=== PATIENT | female | born 1965 | race Caucasian/White ===

== ENCOUNTER 2018-03-12 20:32 | Emergency (ER) | payer OTHER ==
[2018-03-12 23:05] LABS: Urine Blood NEGATIVE (NEG); Urine Glucose NEGATIVE (NEG); Urine Protein NEGATIVE (NEG); Urine Specific Gravity 1.015 (1.005-1.030)
[2018-03-12] MEDS ORDERED: HYDROCODONE/APAP 5/325 MG TAB ONE (23:10)
[2018-03-12] MEDS ORDERED: IBUPROFEN 200 MG TAB PO ONE (23:11)
--- NOTE | 2018-03-12 23:59 | EDPHYS ---
Physician Documentation [facility] Name: Lauren Carias Age: 53 yrs Sex: Female : 1965 Arrival Date: 03/12/2018 Time: 20:34 Bed 25 Private MD: ED Physician Ashish Saldaña HPI: 03/13 00:00 This 53 yrs old Female presents to ER via Ambulatory with complaints of Left pm1 rib pain. 00:00 Details of fall: The patient fell from seated position, out of a chair. Onset: The pm1 symptoms/episode began/occurred today. Associated injuries: The patient sustained left lateral lower rib, pain. The patient has not experienced similar symptoms in the past. Patient was sitting in the chair of her boat and it folded. She fell on her left rib cage on the throttle of the boat. No headache, head injury, or neck pain. no shortness of breath or fever. 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 - Social history:: Smoking status: Patient/guardian denies using tobacco. - Ebola Screening: : Patient denies travel to an Ebola-affected area in the 21 days before illness onset. ROS: 03/13 00:00 Constitutional: Negative for fever, chills, and weight loss, Eyes: Negative for injury, pm1 pain, redness, and discharge, ENT: Negative for injury, pain, and discharge, Neck: Negative for injury, pain, and swelling, Cardiovascular: Negative for chest pain, palpitations, and edema, Respiratory: Negative for shortness of breath, cough, wheezing, and pleuritic chest pain, Abdomen/GI: Negative for abdominal pain, nausea, vomiting, diarrhea, and constipation, Back: Negative for injury and pain, : Negative for injury, bleeding, discharge, and swelling, MS/Extremity: Negative for injury and deformity, Skin: Negative for injury, rash, and discoloration, Neuro: Negative for headache, weakness, numbness, tingling, and seizure. Exam: 00:00 Constitutional: This is a well developed, well nourished patient who is awake, alert, pm1 and in no acute distress. Head/Face: Normocephalic, atraumatic. Eyes: Pupils equal round and reactive to light, extra-ocular motions intact. Lids and lashes normal. Conjunctiva and sclera are non-icteric and not injected. Cornea within normal limits. Periorbital areas with no swelling, redness, or edema. ENT: Nares patent. No nasal discharge, no septal abnormalities noted. Tympanic membranes are normal and external auditory canals are clear. Oropharynx with no redness, swelling, or masses, exudates, or evidence of obstruction, uvula midline. Mucous membranes moist. Neck: Trachea midline, no thyromegaly or masses palpated, and no cervical lymphadenopathy. Supple, full range of motion without nuchal rigidity, or vertebral point tenderness. No Meningismus. 00:00 Cardiovascular: Regular rate and rhythm with a normal S1 and S2. No gallops, murmurs, or rubs. Normal PMI, no JVD. No pulse deficits. Respiratory: Lungs have equal breath sounds bilaterally, clear to auscultation and percussion. No rales, rhonchi or wheezes noted. No increased work of breathing, no retractions or nasal flaring. Abdomen/GI: Soft, non-tender, with normal bowel sounds. No distension or tympany. No guarding or rebound. No evidence of tenderness throughout. Back: No spinal tenderness. No costovertebral tenderness. Full range of motion. Skin: Warm, dry with normal turgor. Normal color with no rashes, no lesions, and no evidence of cellulitis. MS/ Extremity: Pulses equal, no cyanosis. Neurovascular intact. Full, normal range of motion. 00:00 Chest/axilla: Inspection: normal, Palpation: crepitus, is not appreciated, tenderness, of the left lateral chest mid axillary, that totally reproduces the patient's complaints. 00:00 Neuro: Orientation: is normal, Motor: is normal, moves all fours, Gait: is steady, at a normal pace, without difficulty. Vital Signs: 03/12 20:51 BP 118 / 82; Pulse 69; Resp 18; Temp 98.0(O); Pulse Ox 98% ; Weight 61.69 kg; Height 5 aj1 ft. 2 in. (157.48 cm); Pain 8/10; 21:36 BP 129 / 75; Pulse 63; Resp 20; Pulse Ox 99% on R/A; mb3 23:03 BP 128 / 80; Pulse 67; Resp 18; Pulse Ox 99% on R/A; mb3 03/13 00:10 BP 132 / 92; Pulse 65; Resp 18; Pulse Ox 99% on R/A; mb3 03/12 20:51 Body Mass Index 24.87 (61.69 kg, 157.48 cm) aj1 Jackelyn Coma Score: 03/12 20:51 Eye Response: spontaneous(4). Verbal Response: oriented(5). Motor Response: obeys aj1 commands(6). Total: 15. Trauma Score (Adult): 20:51 Eye Response: spontaneous(1); Verbal Response: oriented(1); Motor Response: obeys aj1 commands(2); Systolic BP: > 89 mm Hg(4); Respiratory Rate: 10 to 29 per min(4); Delano Score: 15; Trauma Score: 12 MDM: 21:02 Patient medically screened. pm1 21:08 ED course: Patient offered pain medications for left rib pain. Patient refused. pm1 23:57 Data reviewed: vital signs. Data interpreted: Pulse oximetry: on room air is 99 %. pm1 Interpretation: normal. Counseling: I had a detailed discussion with the patient and/or guardian regarding: the historical points, exam findings, and any diagnostic results supporting the discharge/admit diagnosis, radiology results, the need for outpatient follow up, to return to the emergency department if symptoms worsen or persist or if there are any questions or concerns that arise at home. 03/12 22:59 Order name: Urine Dipstick--Ancillary (enter results); Complete Time: 23:59 eb 03/12 21:11 Order name: Ribs Unil W/CXR; Complete Time: 15:03 EDMS 03/12 21:08 Order name: Urine Dipstick-Ancillary (obtain specimen); Complete Time: 00:08 pm1 03/12 21:08 Order name: Urine Test (obtain specimen); Complete Time: 00:08 pm1 Administered Medications: 23:12 Drug: Ibuprofen 600 mg Route: PO; 3 03/13 00:08 Follow up: Response: No adverse reaction 3 03/12 23:13 Drug: HYDROcodone-acetaminophen 5 mg-325 mg 1 tabs Route: PO; 3 03/13 00:08 Follow up: Response: No adverse reaction 3 00:07 Drug: [place] 5 mg-325 mg 1 tabs Route: PO; 3 00:08 Follow up: Response: No adverse reaction; Medication administered at discharge. 3 Disposition: 00:10 Co-signature as Attending Physician, Ashish Saldaña MD. pk Disposition: 03/12/18 23:58 Discharged to Home. Impression: Fracture of one rib, left side. - Condition is Stable. - Discharge Instructions: Rib Fracture. - Prescriptions for Tylenol- Codeine #3 300-30 mg Oral Tablet - take 2 tablets by ORAL route every 6 hours As needed; 20 tablet. - Medication Reconciliation Form, Thank You Letter, Prescription Opioid Use form. - Follow up: Emergency Department; When: As needed; Reason: Worsening of condition. Follow up: Private Physician; When: 2 - 3 days; Reason: Recheck today's complaints, Continuance of care, Re-evaluation by your physician. - Problem is new. - Symptoms have improved. Signatures: Dispatcher [employer] EDMS Triny Chopra RN RN aj1 Ashish Saldaña MD MD pkl Livan Rea, CHUCK [employer] SALES REPRESENTATIVE pm1 Ahmet Armstrong RN RN mb3 Corrections: (The following items were deleted from the chart) 03/12 21:11 21:08 Ribs Left+RAD.RAD.BRZ ordered. [facility] 21:12 21:08 Chest Single [facility]. [facility] 03/13 00:10 03/12 23:58 03/12/2018 23:58 Discharged to Home. Impression: Fracture of one rib, left mb3 side. Condition is Stable. Forms are Medication Reconciliation Form, Thank You Letter, Antibiotic Education, Prescription Opioid Use. Follow up: Emergency Department; When: As needed; Reason: Worsening of condition. Follow up: Private Physician; When: 2 - 3 days; Reason: Recheck today's complaints, Continuance of care, Re-evaluation by your physician. Problem is new. Symptoms have improved. pm1
--- NOTE | 2018-03-12 23:59 | ER ---
Nurse's Notes [facility] Name: Lauren Carias Age: 53 yrs Sex: Female : 1965 Arrival Date: 03/12/2018 Time: 20:34 Bed 25 Private MD: Diagnosis: Fracture of one rib, left side Presentation: 03/12 20:51 Presenting complaint: Patient states: "I fell really really hard on a boat throttle. I aj1 was sitting on the boat seat and the seat flipped up and I fell into the throttle" Reports pain to left posterior anterior chest. Reports pain is aggravated by movement and deep breathing. Care prior to arrival: None. Mechanism of Injury: Fall out of chair. Trauma event details: Injury occurred in the [facility]. 20:51 Acuity: SOFIA 4 aj1 20:51 Method Of Arrival: Ambulatory aj1 20:58 Transition of care: patient was not received from another setting of care. Onset of aj1 symptoms was March 12, 2018 at 19:15. Risk Assessment: Do you want to hurt yourself or someone else? Patient reports no desire to harm self or others. Initial Sepsis Screen: Does the patient meet any 2 criteria? No. Patient's initial sepsis screen is negative. Does the patient have a suspected source of infection? No. Patient's initial sepsis screen is negative. DRIER: 21:00 LMP N/A - Post-menopause aj1 Trauma Activation: Not Applicable Physician: ED Physician; Name: ; Notified At: ; Arrived At: Physician: General Surgeon; Name: ; Notified At: ; Arrived At: Physician: Radiology; Name: ; Notified At: ; Arrived At: Physician: Respiratory; Name: ; Notified At: ; Arrived At: Physician: Lab; Name: ; Notified At: ; Arrived At: Historical: - Allergies: 21:00 No Known Allergies; aj1 - Home Meds: 21:00 Bupropion Oral [Active]; progesterone [Active]; aj1 - PMHx: 21:00 None; aj1 - PSHx: 21:00 foot surgery; aj1 - Immunization history: Last tetanus immunization: < 5 years ago. - Social history:: Smoking status: Patient/guardian denies using tobacco. - Ebola Screening: : Patient denies travel to an Ebola-affected area in the 21 days before illness onset. Screenin:51 Abuse screen: Denies threats or abuse. Denies injuries from another. Tuberculosis aj1 screening: No symptoms or risk factors identified. 07 00:10 Nutritional screening: No deficits noted. Fall Risk None identified. mb3 Assessment: 03/12 20:51 General: Appears in no apparent distress. uncomfortable, Behavior is calm, cooperative, aj1 appropriate for age. Pain: Complains of pain in left lateral posterior chest Pain does not radiate. Pain currently is 8 out of 10 on a pain scale. at worst was 10 out of 10 on a pain scale. Quality of pain is described as aching, Pain began 2 hours ago. Neuro: Level of Consciousness is awake, alert, obeys commands. Cardiovascular: Patient's skin is warm and dry. Respiratory: Reports shortness of breath Airway is patent Respiratory effort is even, unlabored, Respiratory pattern is regular, symmetrical. GI: No signs and/or symptoms were reported involving the gastrointestinal system. Derm: Skin is pink, warm \\T\\ dry. Musculoskeletal: Range of motion: intact in all extremities. 23:03 Reassessment: Patient and/or family updated on plan of care and expected duration. Pain mb3 level reassessed. Patient is alert, oriented x 3, equal unlabored respirations, skin warm/dry/pink. Vital Signs: 20:51 BP 118 / 82; Pulse 69; Resp 18; Temp 98.0(O); Pulse Ox 98% ; Weight 61.69 kg; Height 5 aj1 ft. 2 in. (157.48 cm); Pain 8/10; 21:36 BP 129 / 75; Pulse 63; Resp 20; Pulse Ox 99% on R/A; mb3 23:03 BP 128 / 80; Pulse 67; Resp 18; Pulse Ox 99% on R/A; mb3 03/13 00:10 BP 132 / 92; Pulse 65; Resp 18; Pulse Ox 99% on R/A; mb3 03/12 20:51 Body Mass Index 24.87 (61.69 kg, 157.48 cm) aj1 Jefferson Coma Score: 03/12 20:51 Eye Response: spontaneous(4). Verbal Response: oriented(5). Motor Response: obeys aj1 commands(6). Total: 15. Trauma Score (Adult): 20:51 Eye Response: spontaneous(1); Verbal Response: oriented(1); Motor Response: obeys aj1 commands(2); Systolic BP: > 89 mm Hg(4); Respiratory Rate: 10 to 29 per min(4); Jefferson Score: 15; Trauma Score: 12 ED Course: 20:34 Patient arrived in ED. ds1 20:51 Patient has correct armband on for positive identification. aj1 20:51 Patient maintains SpO2 saturation greater than 95% on room air. aj1 20:54 Triage completed. aj1 21:00 Ahmet Armstrong, FRANKLIN is Primary Nurse. mb3 21:00 Arm band placed on Patient placed in an exam room. aj1 21:02 Livan Rea NP is PHCP. pm1 21:02 Ashish Saldaña MD is Attending Physician. pm1 21:22 Ribs Unil W/CXR In Process Unspecified. EDMS 03/13 00:10 No provider procedures requiring assistance completed. Patient did not have IV access mb3 during this emergency room visit. Administered Medications: 03/12 23:12 Drug: Ibuprofen 600 mg Route: PO; mb3 03/13 00:08 Follow up: Response: No adverse reaction mb3 03/12 23:13 Drug: HYDROcodone-acetaminophen 5 mg-325 mg 1 tabs Route: PO; mb3 03/13 00:08 Follow up: Response: No adverse reaction mb3 00:07 Drug: [place] 5 mg-325 mg 1 tabs Route: PO; mb3 00:08 Follow up: Response: No adverse reaction; Medication administered at discharge. mb3 Outcome: 03/12 23:58 Discharge ordered by . pm1 03/13 00:09 Discharged to home ambulatory, with family. mb3 Condition: stable Discharge instructions given to patient, family, Instructed on discharge instructions, follow up and referral plans. no driving heavy equipment, medication usage, Demonstrated understanding of instructions, follow-up care, medications, Prescriptions given X 1. 00:10 Patient left the ED. mb3 Signatures: Dispatcher [employer] EDHI Triny Chopra RN Vi Thomas ds1 Livan Rea, [employer] [facility] pm1 Ahmet Armstrong RN RN mb3
[2018-03-13] MEDS ORDERED: HYDROCODONE/APAP 5/325 MG TAB ONE (00:06)
--- NOTE | 2018-03-13 09:20 | RAD REPORT ---
EXAM DESCRIPTION: RAD - Ribs Unil W/CXR - 03/12/2018 9:25 pm CLINICAL HISTORY: PAIN Trauma to left-sided ribs. COMPARISON: No comparisons FINDINGS: No displaced rib fracture is seen. No aggressive rib lesion. No underlying pneumothorax. T he lungs are clear. The heart is normal in size. IMPRESSION: No acute rib finding is demonstrated.
== END 2018-03-13 00:10 | disposition home or self-care (01) ==
LOC: ER 20:32
DX: S22.32XA Fracture of one rib, left side, initial encounter for closed fracture (principal); W19.XXXA Unspecified fall, initial encounter; Y93.89 Activity, other specified; Y92.814 Boat as the place of occurrence of the external cause; Y99.8 Other external cause status
CPT/HCPCS: 71101; 81003; 99284